=== PATIENT | female | born 1990 | race Caucasian/White ===

== ENCOUNTER 2017-08-29 20:38 | Emergency (ER) | payer MEDICAID ==
[2017-08-29 21:16] VITALS: BP 121/73
== END 2017-08-29 22:52 | disposition left against medical advice (07) ==
LOC: ED 20:38
DX: Z53.21 Procedure and treatment not carried out due to patient leaving prior to being seen by health care provider (principal)

== ENCOUNTER 2017-08-30 00:26 | Emergency (ER) | payer MEDICAID ==
[2017-08-30 02:51] VITALS: BP 136/69
== END 2017-08-30 02:51 | disposition home or self-care (01) ==
LOC: ED 00:26
DX: J06.9 Acute upper respiratory infection, unspecified (principal); J45.909 Unspecified asthma, uncomplicated